=== PATIENT | female | born 1990 | race Caucasian/White ===

== ENCOUNTER 2016-12-12 14:57 | Inpatient (IN) | payer OTHER ==
--- NOTE | ~2016-12-12 | PN ---
Unit #: [id number] #: [id number] Patient: MIRTA CHRISTINE [id number] [place] [address] [id number] I MR#: [id number] NAME: MIRTA CHRISTINE ROOM: P256 Age: 26 Sex: F Admission Date: 12/12/2016 : 1990 Attending Physician: Maximo Ny M.D. Admitting Physician: Maximo Ny M.D. Primary Care Physician: Denisse Primary Care Physician REJI RILEY NOTES DATE 12/16/2016 Yoko Barber APRN, covering for Dr. Maximo Ny M.D. at [facility]. DISCUSSION Upon today's assessment the patient was found sitting on her bed, resting comfortably and appearing in no apparent distress. She reports that she is doing okay and immediately states that she just wants to "go home." She states that she had been off her medications but now she is taking them as ordered and prescribed and reports that she is feeling better. MENTAL STATUS EXAMINATION At this time reveals a 26-year-old female appearing her stated age. She is casually dressed with good personal hygiene today. She is oriented to person and place and general circumstances. Her mood is constricted. Her affect is flat. Her speech is relevant and coherent with a normal tone and rate. Her thought process appear goal directed at this time and focused on going home. She denies suicidal ideation. She denies auditory or visual hallucinations at this time and no overt symptoms of psychosis were noted. Memory and influential functioning. The patient's memory is grossly intact and she is with mild mental retardation. Judgment and insight appear limited. She reports adequate sleep and adequate appetite at this time and denies any side effects to any medications currently. At this time we will continue to monitor her for safety and stabilization, as well as q.15 minute checks for safety and make adjustments to medications as needed. Dictated by... Yoko Barber APRN TW/ts TD: 12/19/2016 12:27 JOB #: [id number] Unit #: [id number] #: [id number] Patient: MIRTA CHRISTINE [facility] PROGRESS NOTES Page 1 of 1 X YOKO BARBER
--- NOTE | ~2016-12-12 | DS ---
Unit #: [id number] #: [id number] Patient: STEPHANI CHRISTINE [id number] [facility] [address] [place] [address] [id number] MR#: [id number] NAME: STEPHANI CHRISTINE ROOM: P256 Age: 26 Sex: F Admission Date: 12/12/2016 : 1990 Discharge Date: 12/21/2016 Attending Physician: Maximo Ny M.D. Primary Care Physician: Primary Care Physician No DISCHARGE SUMMARY REASON FOR ADMISSION Stephani is a 26-year-old woman with a history of bipolar disorder and has been living at a long-term living facility. She has increasing stress with staff and peers, and accuses "everyone is trying to ruin my life." Family also stated that the patient has been sexually acting out. She was admitted for stabilization. LABORATORY DATA Please see hospital chart. HOSPITAL COURSE The patient was admitted on suicide precautions. Seroquel was increased to its maximum dose of 800 mg at bedtime and Depakote was continued. The patient immediately recanted her suicidal ideation, but this appeared to be more instrumental than real and she was continued on the unit for ongoing psychotherapy. We contacted her living facility and they were indeed willing to accept her back in her current state, after her behavior had shown improvement on the unit. On the date of discharge, she was once again fredo for safety. DISCHARGE DIAGNOSES AXIS I: Bipolar disorder, most recent episode, mixed. AXIS II: Mild mental retardation. AXIS III: Diabetes, hypertension. AXIS IV: AXIS V: DISCHARGE INSTRUCTIONS Follow up with community mental health and primary care physician. DISCHARGE MEDICATIONS Seroquel 400 mg two tablets at bedtime for mood stability. Depakote 250 mg b.i.d. for mood stability. Other medications to be continued unchanged per primary care physician. CONDITION AT DISCHARGE Fair. PROGNOSIS Fair. DIET AND ACTIVITY Unit #: [id number] #: [id number] Patient: STEPHANI CHRISTINE The patient is to follow a diabetic diet as recommended by her primary care physician. Dictated by... Maximo Ny M.D. DOE/debo TD: 01/19/2017 11:48 JOB #: [id number] DISCHARGE SUMMARY Page 1 of 1 X Maximo Ny MD DISCHARGE SUMMARY
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
--- NOTE | ~2016-12-12 | PN ---
Unit #: [id number] #: [id number] Patient: STEPHANI CHRISTINE [id number] [facility] [address] [place] [address] [id number] I MR#: [id number] NAME: STEPHANI CHRISTINE ROOM: P256 Age: 26 Sex: F Admission Date: 12/12/2016 : 1990 Attending Physician: Maximo Ny M.D. Admitting Physician: Maximo Ny M.D. Primary Care Physician: Primary Care Physician Denisse MENDOZA PROGRESS NOTES DATE 12/19/2016 DISCUSSION Stephani continues to be somewhat oppositional and irritable, stating that we are "delaying" her discharge unnecessarily. However, she has a history of acting out and uncooperative behavior and the facility needs to meet with her to make sure she is willing to obey their standards of behavior prior to return. She is, otherwise compliant with medications and has no adverse side effects. ASSESSMENT Bipolar disorder. PLAN Continue current treatment plan. Dictated by... Abigail Gorman/janessa TD: 12/20/2016 08:21 JOB #: [id number] REJI PROGRESS NOTES Page 1 of 1 X Maximo Ny MD X PROGRESS NOTE
--- NOTE | ~2016-12-12 | PN ---
Unit #: [id number] #: [id number] Patient: STEPHANI CHRISTINE [id number] [facility] [address] [place] [address] [id number] I MR#: [id number] NAME: STEPHANI CHRISTINE ROOM: P256 Age: 26 Sex: F Admission Date: 12/12/2016 : 1990 Attending Physician: Maximo Ny M.D. Admitting Physician: Maximo Ny M.D. Primary Care Physician: No Primary Care Physician REJI RILEY NOTES DATE 12/18/2016. DISCUSSION Stephani is cooperative with unit groups and activities today and remains on some acting out precautions. She is a superficial in her interactions, stating "I am just ready to go home," although her behavior has not significantly changed since admission. She is alert and fully oriented with no evidence of psychosis, but concreteness and definite difficulty understanding the implications of her behavioral control problems. She has no adverse effects to medications. ASSESSMENT Bipolar, mixed. PLAN Continue with current treat plan and request that her living facility come interview her to establish a baseline and need for further treatment. Dictated by... Abigail GormanH/junaid TD: 12/18/2016 16:27 JOB #: [id number] REJI RILEY NOTES Page 1 of 1 X Maximo Ny MD PROGRESS NOTE
--- NOTE | ~2016-12-12 | PN ---
Unit #: [id number] #: [id number] Patient: MIRTA CHRISTINE [id number] [facility] [address] [place] [address] [id number] I MR#: [id number] NAME: MIRTA CHRISTINE ROOM: P256 Age: 26 Sex: F Admission Date: 12/12/2016 : 1990 Attending Physician: Maximo Ny M.D. Admitting Physician: Maximo Ny M.D. Primary Care Physician: Primary Care Physician No [facility] PROGRESS NOTES DATE 12/17/2016 DISCUSSION This patient was seen and evaluated on December 17, 2016. She reports feeling much better. She denies any suicidal ideation and contracts for safety. The patient is hopeful for discharge tomorrow. Her mood has improved. Her sleep and appetite are adequate at this time. I anticipate discharge tomorrow as she will meet with Dr. Ny. She has no complaints today. Dictated by... Castro Delgado/stacia TD: 12/19/2016 23:08 JOB #: [id number] [facility] PROGRESS NOTES Page 1 of 1 X Lacey Lopez PROGRESS NOTE
--- NOTE | ~2016-12-12 | PN ---
Unit #: [id number] #: [id number] Patient: MIRTA FARIAS [id number] [facility] [address] [place] [address] [id number] I MR#: [id number] NAME: MIRTA FARIAS ROOM: P256 Age: 26 Sex: F Admission Date: 12/12/2016 : 1990 Attending Physician: Maximo Ny M.D. Admitting Physician: Maximo Ny M.D. Primary Care Physician: No Primary Care Physician REJI PROGRESS NOTES DATE 12/20/16 DISCUSSION Ms. Farias is generally doing well on the unit. She is calm and cooperative today with no complaints of medication side effects or medical problems. She is alert and fully oriented. Her memory and concentration are intact. Her thought processes are logical and concrete, but nonpsychotic. She has no SI or HI. ASSESSMENT Bipolar depressed. PLAN We will continue with current treatment plan, which includes a meeting with her half-way tomorrow and possible discharge after that if everyone is agreeable. Dictated by... Abigail Gorman/lina TD: 12/21/2016 08:23 JOB #: [id number] REJI PROGRESS NOTES Page 1 of 1 X Maximo Ny MD PROGRESS NOTE
--- NOTE | ~2016-12-12 | HP ---
Unit #: [id number] #: [id number] Patient: STEPHANI CHRISTINE [id number] [facility] [address] [place] [address] [id number] I MR#: [id number] NAME: STEPHANI CHRISTINE ROOM: P252 Age: 26 Sex: F Admission Date: 12/12/2016 : 1990 Attending Physician: Maximo Ny M.D. Admitting Physician: Maximo Ny M.D. Primary Care Physician: Primary Care Physician No HISTORY AND PHYSICAL HISTORY OF PRESENT ILLNESS Stephani is a 26 year old admitted to [address] [place] [address] with depression and verbalizing wanting to hurt herself. Her last admission to this facility was as a 14 year old. PAST MEDICAL HISTORY 1. alcohol syndrome. 2. Mild MR. 3. Obesity. 4. High blood pressure. 5. Diabetes mellitus. 6. History of illicit substance abuse to include methamphetamine and "pills." PAST SURGICAL HISTORY Nothing reported. ALLERGIES No known drug allergies. SOCIAL HISTORY Smokes greater than 1 pack per day. Denies alcohol. Admits to a history of illicit substance abuse to include methamphetamine and "pills." She tells me she has not used meth in 4 months. FAMILY HISTORY Medically noncontributory. REVIEW OF SYSTEMS CONSTITUTIONAL: No fever or chills. HEENT: Denies any sore throat, ear pain or runny nose. CARDIOVASCULAR: Denies chest pain, irregular heart rhythm or palpitations. CHEST: Denies shortness of breath or cough. No hemoptysis. GASTROINTESTINAL: Denies nausea, vomiting, diarrhea or chronic constipation. ENDOCRINE: Denies history of increased thirst or urination. No recent significant weight loss or gain. GENITOURINARY: Denies dysuria, frequency, or hematuria. SKIN: Denies any rashes. HEMATOLOGIC: Denies history of increased bleeding or bruising. MUSCULOSKELETAL: Denies any hot, swollen joints. No generalized muscle pain. NEUROLOGIC: Denies problems with vision or speech. No frequent, severe Unit #: [id number] #: [id number] Patient: STEPHANI CHRISTINE headaches. No numbness, tingling or weakness in any extremities. Denies loss of bladder or bowel control. CURRENT MEDICATIONS No orders received at the time of this dictation. PHYSICAL EXAMINATION GENERAL: Alert, obese, in no apparent distress. VITAL SIGNS: Blood pressure 120/80, heart rate 80, respirations 16, temperature 98.6. WEIGHT: 200. HEIGHT: 5 feet 4 inches. SKIN: Warm and dry without rash or lesion. HEENT: Normocephalic. TMs not viewed. Oral and nasal passages clear. Conjunctivae clear. PERRLA. EOMs intact. NECK: Supple without lymphadenopathy or thyromegaly. HEART: Regular rate and rhythm without murmur. LUNGS: Clear. ABDOMEN: Soft, nontender. : Not done. EXTREMITIES: No evidence of cyanosis, clubbing or edema. Moves all without focal deficit. NEUROLOGICAL: Grossly within normal limits. Cranial Nerves: II: Visual gonzalez are intact. III, IV AND : Extraocular movements are intact. Pupils are equal, round and reactive to light. V: Facial sensation is grossly normal. VII: Facial movements and expression are normal. VIII: Auditory acuity grossly intact. IX, X: Uvula is midline. Phonation is normal. XI: Patient shrugs shoulders and turns head normally. XII: Tongue protrudes in the midline. Sensory and Motor Function: Sensory and motor sensation is grossly normal. Motor: moves all extremities well. Coordination: Gait is normal. Deep Tendon Reflexes: Intact. IMPRESSION Psychiatric admission. RECOMMENDATIONS PSYCHIATRIC: Per psychiatrist. MEDICAL: See no contraindications to participate in facility's activities. MEDICAL PROGNOSIS Good. MEDICAL CONDITION Stable. NOTE: Patient has a full wig on. This has been pointed out to nursing staff. This will be removed to complete a thorough skin check. Dictated by... Sarah Lawton P.A.-C. for Price Jiménez M.D. Unit #: [id number] #: [id number] Patient: STEPHANI CHRISTINE DIAMOND/dzh TD: 12/12/2016 20:50 JOB #: [id number] HISTORY AND PHYSICAL Page 1 of 1 X Sarah Lawton HISTORY AND PHYSICAL
--- NOTE | ~2016-12-12 | PN ---
Unit #: [id number] #: [id number] Patient: MIRTA CHRISTINE [id number] [facility] [address] [place] [address] [id number] I MR#: [id number] NAME: MIRTA CHRISTINE ROOM: P256 Age: 26 Sex: F Admission Date: 12/12/2016 : 1990 Attending Physician: Maximo Ny M.D. Admitting Physician: Maximo Ny M.D. Primary Care Physician: Primary Care Physician Denisse MENDOZA PROGRESS NOTES DATE 12/14/2016 DISCUSSION This patient was seen and evaluated on 12/14/2016. She continues to report ongoing depressive symptoms but denies any suicidal ideation and contracts for safety. She is hopeful for discharge within a few days. She is attending groups and unit activities. She will continue inpatient hospitalization or medication management at this time. She will meet with her primary psychiatrist tomorrow, Dr. Ny. Dictated by... Castro Delgado/stacia TD: 12/19/2016 22:00 JOB #: [id number] REJI PROGRESS NOTES Page 1 of 1 X Lacey Lopez PROGRESS NOTE
[2016-12-13 11:01] LABS: AMPHETAMINE NEG (NEG); BARBITURATES NEG (NEG); BENZODIAZEPINES NEG (NEG); COCAINE NEG (NEG); MARIJUANA NEG (NEG); OPIATES POS (NEG); TRICYCLIC ANTIDEPRESSANTS NEG (NEG); U METHADONE NEG (NEG)
== END 2016-12-21 11:15 | disposition short-term general hospital (02) | DRG 885 ==
LOC: P2L 16:54
PROVIDERS: Psychiatry & Neurology Psychiatry
DX: F31.30 Bipolar disorder, current episode depressed, mild or moderate severity, unspecified (principal); E11.9 Type 2 diabetes mellitus without complications; I10 Essential (primary) hypertension; F31.60 Bipolar disorder, current episode mixed, unspecified; F70 Mild intellectual disabilities; Q86.0 Fetal alcohol syndrome (dysmorphic); E66.9 Obesity, unspecified; F17.210 Nicotine dependence, cigarettes, uncomplicated
CPT/HCPCS: 80307; 82947